=== PATIENT | male | born 1980 | race Two or more races ===

== ENCOUNTER 2019-12-29 14:14 | Emergency (ER) | payer SELFPAY ==
[~2019-12-29] VITALS: Ht 175.3 cm; Wt 86.2 kg
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
[2019-12-29 14:26] VITALS: BP 122/76
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
[2019-12-29] MEDS ORDERED: Morphine Sulfate 4mg/ml Inj (IV USE ONLY) IVP ONE (14:45)
--- NOTE | 2019-12-29 14:46 | NUR ---
ED Nurse Note: pt taken to x ray.
--- NOTE | 2019-12-29 15:09 | NUR ---
ED Nurse Note: back from x ray/ ct
--- NOTE | 2019-12-29 15:18 | Diagnostic Imaging Report ---
Indication: Headache Technique: Contiguous 5 mm thick transaxial imaging of the head obtained in a Siemens Sensation [address] scanner. Soft tissue and bone windows generated. Automatic Exposure Control was utilized. Total Dose length Product (DLP): 965mGycm CT Dose Index Volume (CTDIvol): 53.4 mGy Comparison: none Findings: The size and configuration of the cortical sulci, basal cisterns, and ventricles are within normal limits for age. There is no mass effect, midline shift, or edema identified. There is no evidence of acute hemorrhage or abnormal intra-axial or extra-axial fluid collections. The bones and soft tissues are unremarkable. Impression: No mass effect, edema or acute bleed. The CT scanner at [facility] is accredited by the [employer] and the scans are performed using dose optimization techniques as appropriate to a performed exam including Automatic Exposure control.
--- NOTE | 2019-12-29 15:26 | NUR ---
ED Nurse Note: pt unable to urinate at this time. pt aware to procvide urine sample when able to.
[2019-12-29 15:34] LABS: HEMATOCRIT 40.5 % (42.0-52.0); MEAN CORPUSCULAR VOLUME 75 FL (80-99); MONOCYTES % (AUTO) 9.9 % (1.0-10.0); NEUTROPHILS % (AUTO) 59.2 % (45.0-75.0); PLATELET COUNT 218 K/UL (150-450); RED BLOOD COUNT 5.38 M/UL (4.70-6.10); RED CELL DISTRIBUTION WIDTH 12.2 % (11.6-14.8); WHITE BLOOD COUNT 7.8 K/UL (4.8-10.8)
[2019-12-29 15:39] LABS: ANION GAP 11 mmol/L (5-15); BLOOD UREA NITROGEN 12 mg/dL (7-18); CALCIUM 9.4 MG/DL (8.5-10.1); CARBON DIOXIDE 25 MMOL/L (21-32); CHLORIDE 106 MMOL/L (98-107); CREATININE 1.3 MG/DL (0.55-1.30); POTASSIUM 3.6 MMOL/L (3.5-5.1); SODIUM 142 MMOL/L (136-145)
[2019-12-29 15:41] LABS: ALANINE AMINOTRANSFERASE 41 U/L (12-78); ALBUMIN 3.6 G/DL (3.4-5.0); ALKALINE PHOSPHATASE 108 U/L (46-116); ASPARTATE AMINO TRANSFERASE 24 U/L (15-37); BILIRUBIN,TOTAL 0.7 MG/DL (0.2-1.0)
--- NOTE | 2019-12-29 15:53 | Diagnostic Imaging Report ---
Indication: Dyspnea Comparison: None A single view chest radiograph was obtained. Findings: Cardiomediastinal appearance is within normal limits for age. The lungs are clear. Pulmonary vascularity is appropriate. The diaphragmatic contour is smooth and costophrenic angles are sharp. No pleural effusions are identified. The bones are unremarkable. Impression: No acute findings
--- NOTE | 2019-12-29 15:53 | Diagnostic Imaging Report ---
Indication: Right knee Pain 3 views of the right knee were obtained. Findings: No acute fracture, malalignment, or joint effusion are identified. Impression: Negative for acute findings.
--- NOTE | 2019-12-29 16:00 | NUR ---
ED Nurse Note: pt unable to provide urine, ermd aware.
[2019-12-29] MEDS ORDERED: ACETAMINOPHEN500 M3 ORAL (16:14)
[2019-12-29] MEDS ORDERED: IBUPROFEN400 M1 PO (16:14)
[2019-12-29] MEDS ORDERED: Ketorolac 30mg Inj IV ONE (16:15)
[2019-12-29 16:28] VITALS: BP 128/80
--- NOTE | 2019-12-29 16:28 | NUR ---
ER DISCHARGE NOTE: Patient is cleared to be discharged per ERMD, pt is aox4, on room air, with stable vital signs. pt was given dc and prescription instructions, pt was able to verbalize understanding, pt id band and iv site removed without complications. pt is able to ambulate with steady gait using crutches. pt took all belongings.
== END 2019-12-29 16:28 | disposition home or self-care (01) ==
LOC: EMR 15:28
DX: S80.01XA Contusion of right knee, initial encounter (principal); S00.93XA Contusion of unspecified part of head, initial encounter; V23.4XXA Motorcycle driver injured in collision with car, pick-up truck or van in traffic accident, initial encounter; Y92.410 Unspecified street and highway as the place of occurrence of the external cause
CPT/HCPCS: 36415; 70450; 71045; 73564; 80053; 85025; 85610; 85730; 96361; 96374; 99284; J1885; J7030